=== PATIENT | female | born 1925 | race Caucasian/White ===

== ENCOUNTER 2016-10-02 14:04 | Inpatient (IN) | payer MEDICARE ==
[~2016-10-02] VITALS: Ht 182.8 cm; Wt 76.7 kg
[2016-10-02] VITALS (7 sets, daily range): BP systolic 105–156; BP diastolic 58–66
--- NOTE | ~2016-10-02 | WRIGHTHP ---
[employer], [place] PATIENT HISTORY AND PHYSICAL EXAM [id number] #: [id number] ROOM: 403 DOCTOR: DOROTA CUBA MD BIRTHDATE: [birth year] DOS: 10/02/2016 HISTORY OF PRESENT ILLNESS: The patient is 89 years old, well known to us. She is a resident of [facility]. She was brought in because she became quite weak and had a warm fuzzy feeling and the blood pressure was very low in the [facility], 60/40, and the patient was brought to the Emergency Room where she was quickly hydrated. The blood pressure did improve. She does not remember any of the events preceding her admission yesterday. Denies having any chest pains or palpitations. Does not have any fever or chills. Does not have any nausea, any emesis, any diarrhea. PAST MEDICAL HISTORY: Significant for: 1. Adult failure to thrive. She is a resident of [facility]. 2. Dementia, Alzheimer's, late onset. 3. Coronary artery disease, inoperable. 4. Benign hypertension. 5. Mixed hyperlipidemia. MEDICATIONS: She is on losartan, Lasix, Ranexa, aspirin, Fosamax, amlodipine, Isordil, metoprolol, [place], omeprazole. SOCIAL HISTORY: Nonsmoker. PHYSICAL EXAMINATION: GENERAL: She is awake and alert and oriented to person and place. VITAL SIGNS: Graphic trend shows a pressure of 114/44, pulse of 61, respirations 20, temperature 98.1. LUNGS: Diminished breath sounds, clear. HEART: Regular. ABDOMEN: Obese, soft. Minimal tenderness in the left lower quadrant. EXTREMITIES: Without any edema. LABORATORY DATA: Lactic acid 2.6. WBC count is normal at 9.1. ASSESSMENT AND PLAN: 1. The patient with hypotension, elevated lactic acid, most likely septic, most likely from underlying urinary tract infection. Urinalysis will be sent. The patient is placed on IV fluids for the hypotension. 2. Recent significant weight loss. The patient was on multiple antihypertensives, which she may not require any longer. So, we will readjust medicines before discharge. 3. Coronary artery disease without any complaints of chest pain. The patient is restarted on the Isordil and Ranexa. [employer], [place] PATIENT HISTORY AND PHYSICAL EXAM NAME: PAULA ALVARADO UNIT #: [id number] ROOM: [facility] DOCTOR: DOROTA CUBA MD BIRTHDATE: [birth year] DOROTA CUBA MD CM:HISPHYS:PATIENT HISTORY AND PHYSICAL EXAMINATION DOROTA CUBA MD 10/03/16 0845 interface
--- NOTE | ~2016-10-02 | PR ---
[place], [place] PROGRESS NOTE NAME: PAULA ALVARADO UNIT #: [id number] ROOM: 403 DOCTOR: DOROTA CUBA MD BIRTHDATE: [birth year] DOS: 10/04/2016 SUBJECTIVE: The patient states that she feels good and is not having any complaints today. OBJECTIVE: VITAL SIGNS: Graphic trend shows a pressure of 128/61, pulse of 77, respirations 20, temperature 98.1. LUNGS: Diminished breath sounds. HEART: Regular. ABDOMEN: Soft. EXTREMITIES: Without any edema. No signs of DVT. LABORATORY DATA: Blood cultures, no bacterial growth. Urine culture is still pending. ASSESSMENT AND PLAN: 1. Hypotension, lactic acidosis, possibly from an underlying urinary tract infection with sepsis. Sepsis is being ruled out with a negative blood culture. Urine culture is still pending. 2. Coronary artery disease of [place] coronaries. The patient has no complaints of chest pains or shortness of breath. 3. Benign hypertension. Blood pressure meds will be restarted, also we will ask PT for an opinion and if stable, she should go back to the shelter tomorrow. DOROTA CUBA MD CM:PNTRANS [id number] DOROTA CUBA MD 10/04/16 0929 interface
--- NOTE | ~2016-10-02 | PR ---
[place], [place] PROGRESS NOTE NAME: PAULA ALVARADO UNIT #: [id number] ROOM: 403 DOCTOR: DOROTA CUBA MD BIRTHDATE: [birth year] DOS: 10/05/2016 SUBJECTIVE: The patient is feeling good, has no complaints today. OBJECTIVE: VITAL SIGNS: Graphic trend shows a pressure of 124/58, pulse 76, respirations 16, temperature 97.6. LUNGS: Diminished breath sounds, clear. HEART: Regular. ABDOMEN: Obese, soft, nontender. EXTREMITIES: Without any edema. ASSESSMENT AND PLAN: 1. Hypotension with sepsis, which has been ruled out with negative blood cultures. Urine culture shows heavy gram-negative bacteria. P.o. antibiotics will be added. 2. Urinary tract infection with 50,000 colonies of gram-negative bacteria. We do not have the identification yet, but patient is placed on Ceftin. 3. Adult failure to thrive with hypotension, which has resolved. The patient will be restarted on some of her meds. The plan is to return back to [facility] today. DOROTA CUBA MD CM:PNTRANS [id number] DOROTA CUBA MD 10/05/16 0733 interface
--- NOTE | ~2016-10-02 | DS ---
[place], [place] DISCHARGE SUMMARY NAME[id number] UNIT #: [id number] ROOM: 403 DOCTOR: DOROTA CUBA MD BIRTHDATE: [birth year] DOS: 10/05/2016 HOSPITAL COURSE: This patient is very well known to us. She was brought to the Emergency Room with complaints that she had warm fuzzy feeling and the group home checked her blood pressure, it was very low 60/40. Patient was sent to the Emergency Room and she was hydrated quickly, pressures improved and she was admitted. After admission, the patient had sepsis criteria. Blood cultures were ordered and urine cultures were ordered. Blood culture shows no bacterial growth. Urine culture shows moderate gram negative bacteria, identification is not available. The patient also has lost a significant amount of weight recently and does not require old medicines that she has been on, so the meds were held and some of them have been restarted during this admission. The patient has been evaluated by physical therapy and they feel she could go back to [facility]. The plan is to discharge her to [facility] today. DISCHARGE MEDICATIONS: Will be atorvastatin 10 mg daily, Ceftin 250 mg twice daily for 7 days, Colace 100 mg daily, aspirin 81 daily. Lasix 40 daily, potassium 10 Saturday, Saturday, Saturday; omeprazole 20 daily, calcium with vitamin D 500 t.i.d., multivitamin 1 tablet daily, Fosamax 70 once weekly, iron 325 daily, metoprolol 50 b.i.d., vitamin D 2000 units daily, nitroglycerin sublingual p.r.n. for chest pain, MiraLax 17 g daily p.r.n. for constipation, [place] 5 q. 6 hours p.r.n. for back pain, Imdur SA 90 mg daily, Ranexa 1000 mg daily, amlodipine and losartan have been discontinued. DOROTA CUBA MD CM:DISCHARG [id number] DOROTA CUBA MD 10/05/16 0943 interface
[~2016-10-02 14:04] MED LIST: ALLEGRA180 MG PO; AMLODIPINE BES10 MG PO; AMLODIPINE10 MG PO; ASPI-COR81 M1 PO; ASPIRIN ADULT L81 M1 PO; ASPIRIN DELAYE325 MG PO; BIOTIN FORTE EXT5 MG PO; BIOTIN5 MG PO; CALCIUM + VITA1 EAC2 PO; CEFTRIAXON1 GM/50 ML IV; CIPRO500 MG; CIPRO500 MG PO; CLARITIN10 MG PO; COLACE100 MG PO; COUMADIN2.5 M1 PO; COZAAR100 MG PO; DAILY MULTIPLE1 TA6 PO; DARVOCET A500 51 TA1; DOC-Q-LACE100 MG PO; DOXYCYCLINE MO100 MG PO; FLONASE0.05 MG/AC NS; FOSAMAX70 MG PO; IMDUR30 MG PO; ISOSORBIDE30 MG PO; K-LEASE10 MEQ PO; K-TAB10 MEQ PO; LANSOPRAZOLE30 MG PO; LASIX40 MG PO; LEVOFLOXACIN500 MG PO; LIDODERM 5% PATC1 EA PO; LIDODERM 5% PATC1 EA T; LISINOPRIL20 MG PO; LOPRESSOR100 MG PO; LOPRESSOR25 MG PO; LOPRESSOR50 MG PO; LOVENOX40 MG/0.4 SC; MACROBID100 M1 PO; METOPROLOL SR100 MG PO; METOPROLOL SR25 MG PO; METOPROLOL SUCC50 M1 PO; MICRO-K10 MEQ PO; MIRALAX POWDER17 G1 PO; MIRALAX17 GM/PACK PO; MULTIVITAMIN1 TA1 PO; NEXIUM40 MG PO; NIFEREX150 MG PO; NITROGLYCERIN0.4 MG SL; NITROSTAT0.4 MG SL; NORCO 325 MG-101 TAB PO; NORCO 5-325 TA1 EACH PO; OCUVITE1 TA1 PO; OCUVITE1 TAB PO; PERCOCET 325 MG1 TA2 PO; POTASSIUM20 MEQ PO; PREDNISONE5 MG PO; PREVACID30 M1 PO; PRILOSEC20 M2 PO; PRINIVIL40 MG PO; PROTONIX40 MG PO; PULMICORT RESP0.5 MG INH; RANEXA1000 MG PO; RANEXA500 MG PO; SENOKOTXTRA17.2 MG PO; Senokot1 TAB PO; VALACYCLOVIR H500 MG PO; VITA #121000 MCG/M IM; VITAMIN B1100 MCG/ML IM; VITAMIN D50000 I1 PO; WARFARIN SOD5 MG PO; WELCHOL3.75 GM/Pa PO; XOPENEX0.63 MG INH; Zofran4 MG PO; [UNRECOGNIZED DRUG - OTHER] PO; [UNRECOGNIZED DRUG - OTHER] PO
[2016-10-02 14:44] LABS: HEMATOCRIT 31.6 % (37.0-47.0); HEMOGLOBIN 10.5 g/dl (12.0-16.0); MEAN CELL VOLUME 98.8 fl (81.0-99.0); MEAN CORPUSCULAR HGB 32.8 pg (27.0-31.0); MEAN CORPUSCULAR HGB CONC 33.2 g/dl (33.0-37.0); MEAN PLATELET VOLUME 10.4 fl (9.6-12.3); PLATELET COUNT AUTOMATED 150 10*3/uL (130-400); RED CELL DISTRI WIDTH 14.5 % (0-14.5); WHITE BLOOD COUNT 9.1 10*3/uL (4.8-10.8)
[2016-10-02 14:59] LABS: ALBUMIN 3.9 gm/dl (3.1-4.5); ALKALINE PHOSPHATASE 66 U/L (45-117); BILIRUBIN, TOTAL 0.5 mg/dl (0.2-1.0); BUN 23 mg/dl (7-24); CARBON DIOXIDE 27 mmol/L (21-32); CHLORIDE 103 mmol/L (98-107); EST GLOM FILT AFRICAN AMERICAN 33 ml/min; GLUCOSE 144 mg/dL (65-99); MAGNESIUM 2.2 mg/dL (1.5-2.1); POTASSIUM 4.8 mmol/L (3.5-5.1); SGOT/AST 10 IU/L (3-35); SGPT/ALT 19 U/L (12-78); SODIUM 142 mmol/L (136-145); TOTAL PROTEIN 7.1 gm/dL (6.4-8.2)
[2016-10-02 15:05] LABS: TROPONIN I < 0.015 ng/ml (<0.045)
[2016-10-02 15:06] LABS: LYMPHOCYTE # 1.5 10*3/uL (1.3-4.4); MONOCYTE # 1.9 10*3/uL (0.1-1.0); NEUTROPHIL # 5.7 10*3/uL (2.3-7.9); NEUTROPHILS 63 % (47-73); PLATELET SUFFICIENCY NORMAL (NORMAL); TOTAL CELLS COUNTED 100 #CELLS
[2016-10-02] MEDS ORDERED: FOSAMAX70 M1 PO (15:30)
[2016-10-02] MEDS ORDERED: AMLODIPINE BES1 TAB PO (15:31)
[2016-10-02] MEDS ORDERED: FERROUS SULFAT324 M2 PO (15:31)
[2016-10-02] MEDS ORDERED: METOPROLOL TART50 M1 PO (15:32)
[2016-10-02] MEDS ORDERED: VICODIN 5-3001 EACH PO (15:33)
[2016-10-02] MEDS ORDERED: VITAMIN D32000 UNI1 PO (15:33)
[2016-10-02] MEDS ORDERED: NITROSTAT0.4 MG SL (15:34)
[2016-10-02] MEDS ORDERED: POLYETHYLE17 GM/Dose PO (15:35)
[2016-10-02 16:40] LABS: LA>2 REFLEX 2 HR DRAW NOW
[2016-10-02] MEDS ORDERED: HYDROCODONE/ACE1 TA9 PO (17:52)
[2016-10-03] VITALS: BP 114/44
[2016-10-03 06:42] LABS: HEMATOCRIT 29.8 % (37.0-47.0); HEMOGLOBIN 9.9 g/dl (12.0-16.0); MEAN CELL VOLUME 96.8 fl (81.0-99.0); MEAN CORPUSCULAR HGB 32.1 pg (27.0-31.0); MEAN CORPUSCULAR HGB CONC 33.2 g/dl (33.0-37.0); MEAN PLATELET VOLUME 10.8 fl (9.6-12.3); PLATELET COUNT AUTOMATED 145 10*3/uL (130-400); RED BLOOD COUNT 3.08 10*6/uL (4.10-5.10); RED CELL DISTRI WIDTH 14.4 % (0-14.5); WHITE BLOOD COUNT 5.1 10*3/uL (4.8-10.8)
[2016-10-03 07:13] LABS: METAMYELOCYTES 1 % (0-0); MYELOCYTES 1 % (0-0); NEUTROPHILS 59 % (47-73); PLATELET SUFFICIENCY NORMAL (NORMAL); TOTAL CELLS COUNTED 100 #CELLS
[2016-10-03 07:34] LABS: POTASSIUM 3.7 mmol/L (3.5-5.1)
[2016-10-03] MEDS ORDERED: IMDUR SA60 M1 PO (07:49)
[2016-10-03] MEDS ORDERED: RANEXA1000 M1 PO (07:50)
[2016-10-03 08:00] VITALS: BP 144/60; BP 153/60
[2016-10-03 12:00] VITALS: BP 140/70
[2016-10-03 16:00] VITALS: BP 143/70
[2016-10-03 20:00] VITALS: BP 156/65
[2016-10-04] VITALS: BP 128/61
[2016-10-04 08:00] VITALS: BP 163/77
[2016-10-04 12:00] VITALS: BP 135/51
[2016-10-04 16:00] VITALS: BP 131/66
[2016-10-04 20:00] VITALS: BP 115/54
[2016-10-05] VITALS: BP 124/58
[2016-10-05] MEDS ORDERED: CEFUROXIME AXE250 MG PO (06:36)
[2016-10-05] MEDS ORDERED: LIPITOR10 MG PO (06:36)
[2016-10-05 06:43] LABS: HEMATOCRIT 31.1 % (37.0-47.0); HEMOGLOBIN 10.2 g/dl (12.0-16.0); MEAN CELL VOLUME 98.1 fl (81.0-99.0); MEAN CORPUSCULAR HGB 32.2 pg (27.0-31.0); MEAN CORPUSCULAR HGB CONC 32.8 g/dl (33.0-37.0); MEAN PLATELET VOLUME 10.7 fl (9.6-12.3); PLATELET COUNT AUTOMATED 154 10*3/uL (130-400); RED BLOOD COUNT 3.17 10*6/uL (4.10-5.10); RED CELL DISTRI WIDTH 14.3 % (0-14.5); WHITE BLOOD COUNT 5.4 10*3/uL (4.8-10.8)
[2016-10-05 07:27] LABS: BASOPHIL # 0.1 10*3/uL (0-0.1); BASOPHILS 1 % (0-1); LYMPHOCYTE # 2.3 10*3/uL (1.3-4.4); MONOCYTE # 0.8 10*3/uL (0.1-1.0); NEUTROPHIL # 2.2 10*3/uL (2.3-7.9); NEUTROPHILS 41 % (47-73); PLATELET SUFFICIENCY NORMAL (NORMAL); TOTAL CELLS COUNTED 100 #CELLS
[2016-10-05 08:00] VITALS: BP 136/74
== END 2016-10-05 10:26 | disposition home or self-care (01) | DRG 689 ==
LOC: ED 14:04 → EDHOLD 15:41 → 4E 15:41
PROVIDERS: Internal Medicine; Nurse Practitioner Family
DX: N39.0 Urinary tract infection, site not specified (principal); N17.0 Acute kidney failure with tubular necrosis; G30.9 Alzheimer's disease, unspecified; I10 Essential (primary) hypertension; F02.80 Dementia in other diseases classified elsewhere, unspecified severity, without behavioral disturbance, psychotic disturbance, mood disturbance, and anxiety; I25.10 Atherosclerotic heart disease of native coronary artery without angina pectoris; E78.2 Mixed hyperlipidemia; R62.7 Adult failure to thrive; I95.1 Orthostatic hypotension